=== PATIENT | female | born 2000 | race African-American/Black ===

== ENCOUNTER 2021-07-20 19:04 | Emergency (ER) | payer OTHER | END 2021-07-20 21:05 | disposition home or self-care (01) | LOC: CSHERS 19:04 | DX: S21.152A Open bite of left front wall of thorax without penetration into thoracic cavity, initial encounter (principal); S01.112A Laceration without foreign body of left eyelid and periocular area, initial encounter; S70.11XA Contusion of right thigh, initial encounter; S69.92XA Unspecified injury of left wrist, hand and finger(s), initial encounter; Y04.8XXA Assault by other bodily force, initial encounter; Y04.1XXA Assault by human bite, initial encounter | CPT/HCPCS: 70450; 70486; 72170; 76377 ==

== ENCOUNTER 2021-09-18 14:33 | Emergency (ER) | payer OTHER | END 2021-09-18 15:12 | disposition home or self-care (01) | LOC: CSHERS 14:33 | DX: J06.9 Acute upper respiratory infection, unspecified (principal); Z20.822 Contact with and (suspected) exposure to COVID-19 | CPT/HCPCS: 99283; U0003; U0005 ==

== ENCOUNTER 2023-08-29 17:15 | Emergency (ER) | payer OTHER, SELFPAY ==
[2023-08-29] MEDS ORDERED: Ketorolac Tromethamine 30 MG (1 mL) VIAL ONE (17:42)
== END 2023-08-29 17:48 | disposition home or self-care (01) ==
LOC: CSHERS 17:15
DX: R07.81 Pleurodynia (principal); M54.50 Low back pain, unspecified
CPT/HCPCS: 96372; 99283; J1885